=== PATIENT | male | born 1990 | race Caucasian/White ===

== ENCOUNTER 2025-05-21 13:12 | Emergency (ER) | payer SELFPAY ==
[~2025-05-21 13:12] MED LIST: Iopamidol 300 61% 100 ML VIAL FS ONE
[2025-05-21] MEDS ORDERED: Ondansetron PF 4 MG/2 ML Vial ONE (14:16)
[2025-05-21] MEDS ORDERED: Pantoprazole 40 MG VIAL ONE (14:16)
[2025-05-21 14:24] LABS: #Basophils 0.04 10x3/uL (0.0-0.2); #Eosinophils 0.39 10x3/uL (0.0-0.5); #Monocytes 0.63 10x3/uL (0.0-1.1); #Neutrophils 7.43 10x3/uL (1.5-8.4); %Basophils 0.4 % (0.0-2.0); %Eosinophils 3.7 % (0.0-6.0); %Lymphocytes 19.1 % (18.0-47.0); %Monocytes 6.0 % (0.0-10.0); %Neutrophils 70.6 % (40.0-75.0); Hematocrit 43.0 % (38.8-50.0); Hemoglobin 14.2 g/dL (13.5-17.5); Mean Corpuscular Hemoglobin 26.3 pg (27.0-33.0); Mean Corpuscular Volume 79.8 fL (81.2-95.1); Platelet Count 375 10x3/uL (150-450); Red Blood Cell (RBC) Count 5.39 10x6/uL (4.32-5.72); White Blood Cell (WBC) Count 10.52 10x3/uL (3.5-10.5)
[2025-05-21 14:37] LABS: INR-International Normal Ratio 1.1; PTT 29.1 sec (22.0-33.0); Prothrombin Time 11.8 sec (9.5-12.1)
[2025-05-21 14:40] LABS: ALT (SGPT) 44 U/L (Less than 45); AST (SGOT) 27 U/L (11-34); Albumin 4.6 g/dL (3.1-4.5); Alkaline Phosphatase 100 U/L (40-110); Anion Gap 12 mmol/L (10-20); BUN (Urea Nitrogen) 10 mg/dL (8.9-20.6); Bilirubin, Total 0.7 mg/dL (0.3-1.2); Calc. Creatinine Clearance 0 mL/min (70-130); Calcium 10.0 mg/dL (7.8-10.44); Carbon Dioxide 25 mmol/L (22-29); Chloride 106 mmol/L (98-107); Globulin 3.1 g/dL (2.4-3.5); Glucose 135 mg/dL (70-105); Lipase 16 U/L (8-78); Potassium 4.0 mmol/L (3.5-5.1); Sodium 139 mmol/L (136-145)
[2025-05-21 14:44] LABS: Troponin I Less than 0.010 ng/mL (< 0.028)
[2025-05-21 16:40] LABS: Glucose, Urine (Dipstick) Normal (Negative); Leukocyte Negative (Negative); Protein, Urine (Dipstick) Negative (Neg-Trace); Specific Gravity, Urine 1.010 (1.005-1.030)
[2025-05-21 17:01] LABS: Bacteria/HPF None Seen HPF (None Seen); CAUTI Indications for Culture Pelvic or flank pain; RBC/HPF None Seen HPF (0-3); Urine Culture Reflex No No; WBC/HPF None Seen HPF (0-3)
== END 2025-05-21 17:15 | disposition home or self-care (01) ==
LOC: CSHERS 13:12
DX: K64.4 Residual hemorrhoidal skin tags (principal); J20.9 Acute bronchitis, unspecified; R10.13 Epigastric pain; I10 Essential (primary) hypertension
CPT/HCPCS: 36415; 71045; 74177; 80053; 81001; 82274; 83690; 84484; 85025; 85610; 85730; 87428; 96374; 96375; J2405; J2470; Q9967